=== PATIENT | female | born 1935 | race Caucasian/White ===

== ENCOUNTER 2017-09-28 11:44 | Emergency (ER) | payer MEDICARE, MEDICAID ==
[~2017-09-28] VITALS: Ht 160 cm; Wt 41.5 kg
[~2017-09-28 11:44] MED LIST: NORCO10T PO; TEMA15CA5 PO
[2017-09-28 11:45] VITALS: BP 135/78
[2017-09-28] MEDS ORDERED: CELE-193 PO (12:38)
[2017-09-28] MEDS ORDERED: CYCL5TAB PO (12:38)
[2017-09-28] MEDS ORDERED: ONDA8TAB13 PO (12:38)
[2017-09-28] MEDS ORDERED: celeCOXIB 100mg capsule PO SCH (12:55)
[2017-09-28] MEDS ORDERED: celeCOXIB 100mg capsule PO ONE (12:55)
== END 2017-09-28 13:09 | disposition home or self-care (01) ==
LOC: ER 11:44
DX: M25.511 Pain in right shoulder (principal); M62.838 Other muscle spasm; M19.90 Unspecified osteoarthritis, unspecified site; F17.200 Nicotine dependence, unspecified, uncomplicated; Z90.710 Acquired absence of both cervix and uterus; Z88.6 Allergy status to analgesic agent; Z88.5 Allergy status to narcotic agent; Z79.899 Other long term (current) drug therapy; X50.0XXA Overexertion from strenuous movement or load, initial encounter; Y93.89 Activity, other specified; Y92.89 Other specified places as the place of occurrence of the external cause; Y99.9 Unspecified external cause status
CPT/HCPCS: 29105; 99284